=== PATIENT | female | born 1965 | race Asian ===

== ENCOUNTER 2021-01-14 10:37 | Emergency (ER) | payer OTHER ==
[2021-01-14 10:47] VITALS: BP 127/88; PULSE 76; TEMP 98.8; BMI 25.9
[2021-01-14] MEDS ORDERED: KETOROLAC TROMETHAMINE 15 MG/ML VIAL IM ONE (11:13)
[2021-01-14] MEDS ORDERED: KETOROLAC TROMETHAMINE 30 MG/1 ML VIAL ONE (11:17)
[2021-01-14 11:43] LABS: EPITHELIAL CELLS RARE /hpf
[2021-01-14] MEDS ORDERED: NAPROXEN 500 MG TABLET PO ONE (13:06)
== END 2021-01-14 13:13 | disposition home or self-care (01) ==
LOC: FER 10:37
PROC: 3E0233Z Introduction of Anti-inflammatory into Muscle, Percutaneous Approach (ICD-10-PCS; principal; 2021-01-14)
DX: M53.3 Sacrococcygeal disorders, not elsewhere classified (principal)
CPT/HCPCS: 72100-TC-FY; 81003; 81015; 87086; 99284-25